=== PATIENT | female | born 1935 | race Caucasian/White ===

== ENCOUNTER → 2018-08-25 | Outpatient (CLI) | payer OTHER ==
[~2018-08-25] MED LIST: ALEN70 PO; AMIO200 PO; CHOL10002 PO; CYAN500 PO; Coumadin4 MG PO; FISH1000 PO; GABA300; GABA600 PO; GLUCOSAMINE CH1 EACH PO; HYDACE5 PO; LANS30EC; LEVSOD88 PO; MECL25 PO; METO50 PO; METO50ER PO; Norco 5-325 Ta1 EACH PO; ONDA4ODT MM; ONDA4ODT PO; PROM25 PO; Pacerone100 MG PO; Pravachol20 MG PO; WARF1 PO; [UNRECOGNIZED DRUG - OTHER] PO
[2018-08-25 13:22] LABS: International Normalized Ratio 1.78; Prothrombin Time Results 17.9 Sec (9.7-11.5)
== END | disposition home or self-care (01) ==
LOC: LAB SHORT 10:30 → LAB SRC 10:30
PROVIDERS: Internal Medicine Cardiovascular Disease
DX: I48.0 Paroxysmal atrial fibrillation (principal)
CPT/HCPCS: 85610

== ENCOUNTER 2020-07-06 12:24 | Emergency (ER) | payer OTHER ==
[~2020-07-06] VITALS: Ht 172.7 cm; Wt 69.8 kg
[2020-07-06] MEDS ORDERED: ELIQUIS5 MG (14:09)
[2020-07-06 15:11] LABS: RBC Count, Synovial Fluid 4510000 /mm3 (0-0); WBC Count, Synovial Fluid 18250 /mm3 (0-180)
[2020-07-06 15:36] LABS: Body Fluid Crystals NEG (NEGATIVE)
[2020-07-06 15:44] LABS: Lymphs, Synovial Fluid 7 % (0-15); Monocytes/Macrophages, Synovia 3 % (0-65); Neutrophils, Synovial Fluid 90 % (0-24)
[2020-07-06 15:45] LABS: Appearance, Synovial Fluid Turbid (Clear); Color, Synovial Fluid Red (None-P Yel)
== END 2020-07-06 15:00 | disposition home or self-care (01) ==
LOC: ER 12:24
PROVIDERS: Emergency Medicine
DX: M25.062 Hemarthrosis, left knee (principal); I48.91 Unspecified atrial fibrillation; Z79.01 Long term (current) use of anticoagulants; Z79.899 Other long term (current) drug therapy; Z88.0 Allergy status to penicillin; Z88.6 Allergy status to analgesic agent; Z88.5 Allergy status to narcotic agent
CPT/HCPCS: 20610; 73562-LT; 87070; 87075; 87205; 89051; 89060; 99284-25

== ENCOUNTER → 2021-01-16 | Outpatient (CLI) | payer OTHER ==
[~2021-01-16] MED LIST changes: +ELIQUIS5 MG
[2021-01-16 12:04] LABS: Appearance, Urine Cloudy (Clear); Color, Urine Brown (P-Yellow)
[2021-01-16 12:05] LABS: Bilirubin, Urine 1+ (Neg); Blood, Urine 2+ (Neg); Glucose Qualitative, Urine Neg (Normal); Ketones, Urine 1+ (Neg); Leukocyte Esterase, Urine 2+ (Neg); Nitrite, Urine Pos (Neg); Protein, Urine 3+ (Neg); Urobilinogen, Urine 2+ (Normal)
[2021-01-16 12:06] LABS: Bacteria Many /hpf; Red Blood Cells, Urine 50-100 /hpf (0-2); Squamous Epithelial Cells Few /hpf (Few); White Blood Cells, Urine TNTC /hpf (0-5)
== END | disposition home or self-care (01) ==
LOC: LAB FUT 11:08 → LAB EV 11:08 → LAB FUT 01-16 09:40
PROVIDERS: Nurse Practitioner Family
DX: R30.0 Dysuria (principal)
CPT/HCPCS: 81001; 87077; 87086; 87186

== ENCOUNTER 2024-03-09 02:23 | Emergency (ER) | payer OTHER ==
[~2024-03-09] VITALS: Ht 177.8 cm; Wt 68.0 kg
[2024-03-09 02:33] VITALS: BP 124/77
[2024-03-09] MEDS ORDERED: Oxymetazoline 0.05% Nasal Relief Spray 15mL BTL ONE (06:20)
== END 2024-03-09 07:24 | disposition home or self-care (01) ==
LOC: ER 02:23
DX: R04.0 Epistaxis (principal); I48.91 Unspecified atrial fibrillation; Z87.891 Personal history of nicotine dependence
CPT/HCPCS: 99283; A9270